=== PATIENT | male | born 1965 | race Caucasian/White ===

== ENCOUNTER 2018-11-06 17:04 | Emergency (ER) | payer SELFPAY ==
[~2018-11-06] VITALS: Ht 180.3 cm; Wt 100.7 kg
--- NOTE | 2018-11-06 17:29 | NUR ---
PATIENT ARRIVED AT UNIT AWAKE, A/O X 4, NO ACUTE DISTRESS. REPORTS L LOWER ABDOMINAL PAIN. NOTED WITH CELLULITIS ON ABD. PATIENT RESTING ON BED. FAMILY AT BEDSIDE. WILL CONTINUE TO MONITOR
[2018-11-06] MEDS ORDERED: LIDOCAINE 1%-EPI 1:100,000 20 ML VIAL ONE (17:46)
[2018-11-06] MEDS ORDERED: oxyCODONE/APAP (5/325 MG) 1 UDTAB TABLET ONE (17:54)
[2018-11-06] MEDS ORDERED: oxyCODONE/APAP (5/325 MG) 1 UDTAB TABLET PO ONE (18:00)
[2018-11-06] MEDS ORDERED: LIDOCAINE 1%-EPI 1:100,000 20 ML VIAL TP ONE (18:00)
--- NOTE | 2018-11-06 18:03 | NUR ---
DR WALL AT BEDSIDE
--- NOTE | 2018-11-06 18:29 | NUR ---
Patient discharged to home in stable condition. Written and verbal after care instructions given. Written prescription provided to patient. Patient verbalizes understanding of instruction.
[2018-11-06 18:30] VITALS: BP 133/81
== END 2018-11-06 18:30 | disposition home or self-care (01) ==
LOC: ER 17:06
DX: L02.211 Cutaneous abscess of abdominal wall (principal); Z85.118 Personal history of other malignant neoplasm of bronchus and lung
CPT/HCPCS: 10060; 99283; A6407; J3490